=== PATIENT | male | born 1995 | race Caucasian/White ===

== ENCOUNTER 2020-02-15 01:22 | Emergency (ER) | payer SELFPAY ==
[~2020-02-15] VITALS: Ht 190.5 cm; Wt 108.9 kg
[2020-02-15 01:39] VITALS: BP 127/82
--- NOTE | 2020-02-15 02:15 | NUR ---
COVID SWAB DONE AND SENT TO LAB
--- NOTE | 2020-02-15 02:17 | NUR ---
WA SEEN AND EXAM BY DR MCCARTHY AND FOR D/C
--- NOTE | 2020-02-15 02:17 | NUR ---
Patient discharged with v/s stable. Written and verbal after care instructions given and explained. Patient verbalized understanding. Ambulatory with steady gait. All questions addressed prior to discharge. Advised to follow up with PMD.
--- NOTE | 2020-02-15 02:18 | NUR ---
PT D/C WITH [facility] GIVEN AND PT VERBALIZES UNDERSTANDING
== END 2020-02-15 02:18 | disposition home or self-care (01) ==
LOC: MED 01:22 → EEVIPCON 01:22 → MED 02:18
DX: R50.9 Fever, unspecified (principal); M79.10 Myalgia, unspecified site; R19.7 Diarrhea, unspecified; Z20.828 Contact with and (suspected) exposure to other viral communicable diseases
CPT/HCPCS: 99283; U0003

== ENCOUNTER 2020-05-31 00:30 | Emergency (ER) | payer BC, SELFPAY ==
[~2020-05-31] VITALS: Ht 188 cm; Wt 131.5 kg
[2020-05-31 00:50] VITALS: BP 148/81
[2020-05-31] MEDS ORDERED: KETOROLAC 30 MG/ML VIAL IVP ONE (01:10)
[2020-05-31] MEDS ORDERED: diphenhydrAMINE 50 MG/ML VIAL IVP ONE (01:10)
[2020-05-31] MEDS ORDERED: PROCHLORPERAZINE 10 MG/2 ML VIAL IVP ONE (01:10)
[2020-05-31 01:24] LABS: BASOPHILS # (AUTO) 0.1 K/uL (0.00-0.22); EOSINOPHILS # (AUTO) 0.2 K/uL (0-0.4); EOSINOPHILS % (AUTO) 1.7 % (0.0-4.0); HEMATOCRIT 47.6 % (36-52); HEMOGLOBIN 16.5 g/dL (12.0-18.0); LYMPHOCYTES # (AUTO) 3.7 K/uL (2.0-11.5); LYMPHOCYTES % (AUTO) 37.9 % (20.5-51.1); MEAN CORPUSCULAR HEMOGLOBIN 29 pg (27-31); MEAN CORPUSCULAR HGB CONC 35 g/dL (33-37); MONOCYTES # (AUTO) 0.6 K/uL (0.8-1.0); MONOCYTES % (AUTO) 6.1 % (1.7-9.3); NEUTROPHILS # (AUTO) 5.2 K/uL (1.8-7.7); NEUTROPHILS % (AUTO) 53.3 % (42.2-75.2); PLATELET COUNT (AUTO) 243 K/uL (140-450); RED BLOOD CELL COUNT(AUTO) 5.67 MIL/uL (4.20-6.10); RED CELL DISTRIBUTION WIDTH 13.6 % (11.6-13.7); WHITE BLOOD COUNT (AUTO) 9.8 K/uL (4.8-10.8)
[2020-05-31 01:34] LABS: ANION GAP 11.2 (8-16); CARBON DIOXIDE 28.6 mmol/L (21-32); CREATININE 1.4 mg/dL (0.6-1.3); POTASSIUM 3.8 mmol/L (3.5-5.1)
[2020-05-31] MEDS ORDERED: LORazepam 1 MG TAB ONE (01:40)
[2020-05-31] MEDS ORDERED: LORazepam 1 MG TAB PO ONE (01:40)
[2020-05-31] MEDS ORDERED: NACL 0.9% 1,000 ML IV ONE (01:45)
[2020-05-31 02:33] VITALS: BP 141/81
== END 2020-05-31 02:56 | disposition home or self-care (01) ==
LOC: MED 00:30
DX: G43.909 Migraine, unspecified, not intractable, without status migrainosus (principal); R07.89 Other chest pain; R11.2 Nausea with vomiting, unspecified
CPT/HCPCS: 36415; 70450; 80048; 84484; 85025; 93005; 96361; 96374; 96375; 99285; J0780; J1200; J1885; J7030

== ENCOUNTER 2020-07-06 17:22 | Emergency (ER) | payer BC ==
[~2020-07-06] VITALS: Ht 190.5 cm; Wt 131.5 kg
[2020-07-06 18:17] VITALS: BP 133/81
--- NOTE | 2020-07-06 18:42 | NUR ---
C/O COUGH,PARHAM, FEVER, BODY ACHE X TODAY. FATHER HAD COVID TESTED +. MED HX:DENIES
--- NOTE | 2020-07-06 19:00 | NUR ---
COVID SWAB DONE.
--- NOTE | 2020-07-06 19:17 | NUR ---
Patient discharged with v/s stable. Written and verbal after care instructions given and explained. Patient alert, oriented and verbalized understanding of instructions. Ambulatory with steady gait. All questions addressed prior to discharge. ID band removed. Patient advised to follow up with PMD. Rx of PROMETHAZINE&IBUPROFEN given. Patient educated on indication of medication including possible reaction and side effects. Opportunity to ask questions provided and answered.
[2020-07-06 19:18] VITALS: BP 133/81
== END 2020-07-06 19:18 | disposition home or self-care (01) ==
LOC: MED 17:22
DX: B34.9 Viral infection, unspecified (principal); Z20.828 Contact with and (suspected) exposure to other viral communicable diseases
CPT/HCPCS: 99283; U0003

== ENCOUNTER 2022-01-30 20:34 | Emergency (ER) | payer MEDICAID, OTHER ==
[~2022-01-30] VITALS: Ht 188 cm; Wt 120.2 kg
[2022-01-30 20:48] VITALS: BP 132/70
[2022-01-30 21:52] LABS: APPEARANCE,URINE CLEAR (CLEAR); BILIRUBIN,URINE NEGATIVE (NEGATIVE); BLOOD, URINE 3+ (NEGATIVE); LEUKOCYTE ESTERASE ,URINE NEGATIVE (NEGATIVE); NITRITE, URINE NEGATIVE (NEGATIVE); UGLUCOSE NEGATIVE (NEGATIVE)
[2022-01-30 22:08] LABS: COLOR,URINE YELLOW (YELLOW)
[2022-01-30 22:29] LABS: RBC,URINE TOO NUMEROUS TO COUN /HPF (0-5); WBC,URINE NONE SEEN /HPF (0-5)
[2022-01-31] MEDS ORDERED: HYDROmorphone PFS 2 MG/ML SYR IM ONE (00:15)
[2022-01-31] MEDS ORDERED: HYDR-5080 PO (00:16)
[2022-01-31] MEDS ORDERED: IBUP-2218 PO (00:16)
[2022-01-31 00:55] VITALS: BP 134/84
--- NOTE | 2022-01-31 00:55 | NUR ---
Patient discharged with v/s stable. Written and verbal after care instructions given and explained. Patient alert, oriented and verbalized understanding of instructions. Ambulatory with steady gait. All questions addressed prior to discharge. ID band removed. Patient advised to follow up with PMD. Rx of ibuprofen, norco given. Patient educated on indication of medication including possible reaction and side effects. Opportunity to ask questions provided and answered. Patient to recive ride out of facility.
== END 2022-01-31 00:55 | disposition home or self-care (01) ==
LOC: MED 20:34
DX: R10.12 Left upper quadrant pain (principal); F32.A Depression, unspecified; Z87.442 Personal history of urinary calculi; Z98.890 Other specified postprocedural states
CPT/HCPCS: 81001; 96372; 99283; J1170

== ENCOUNTER 2022-03-25 04:27 | Emergency (ER) | payer MEDICAID, OTHER ==
[~2022-03-25] VITALS: Ht 190.5 cm; Wt 113.4 kg
[~2022-03-25 04:27] MED LIST: HYDR-5080 PO; IBUP-2218 PO
[2022-03-25 04:30] VITALS: BP 135/79
--- NOTE | 2022-03-25 04:30 | NUR ---
TO [facility]UL[facility]
[2022-03-25] MEDS ORDERED: KETOROLAC 30 MG/ML VIAL IM ONE (05:00)
[2022-03-25] MEDS ORDERED: MORPHINE SULFATE 10 MG/ML VIAL IM ONE (05:00)
[2022-03-25 05:03] LABS: APPEARANCE,URINE CLEAR (CLEAR); BILIRUBIN,URINE NEGATIVE (NEGATIVE); BLOOD, URINE 2+ (NEGATIVE); COLOR,URINE YELLOW (YELLOW); LEUKOCYTE ESTERASE ,URINE TRACE (NEGATIVE); NITRITE, URINE NEGATIVE (NEGATIVE); UGLUCOSE NEGATIVE (NEGATIVE)
[2022-03-25 05:23] LABS: WBC,URINE 16-25 (MOD) /HPF (0-5)
[2022-03-25 05:25] LABS: CALCIUM OXALATE CRYSTALS,UR 0-10 /HPF (None Seen)
[2022-03-25] MEDS ORDERED: NAPR-54 PO (05:31)
[2022-03-25] MEDS ORDERED: CEPH-588 PO (05:31)
[2022-03-25] MEDS ORDERED: ACET-8386 PO (05:31)
[2022-03-25] MEDS ORDERED: TAMS0.4C96 PO (05:31)
[2022-03-25] MEDS ORDERED: cefTRIAXone 1,000 MG in LIDOCAINE MPF 1% 2.1 ML IM ONE (05:35)
[2022-03-25 05:36] VITALS: BP 142/74
[2022-03-25] MEDS ORDERED: LIDOCAINE MPF 1% 5 ML ONE (06:13)
[2022-03-25] MEDS ORDERED: cefTRIAXone 1,000 MG VIAL ONE (06:13)
--- NOTE | 2022-03-25 07:01 | NUR ---
Patient discharged with v/s stable. Written and verbal after care instructions given and explained. Patient alert, oriented and verbalized understanding of instructions. Ambulatory with steady gait. All questions addressed prior to discharge. ID band removed. Patient advised to follow up with PMD. Rx of KEFLEX, NAPROSYN, FLOMAX, NORCO given. Opportunity to ask questions provided and answered.
== END 2022-03-25 07:01 | disposition home or self-care (01) ==
LOC: MED 04:27
DX: N20.0 Calculus of kidney (principal); Z79.899 Other long term (current) drug therapy; Z98.890 Other specified postprocedural states
CPT/HCPCS: 81001; 87086; 96372; 99284; J0696; J1885; J2001; J2270

== ENCOUNTER 2022-05-14 22:08 | Emergency (ER) | payer OTHER ==
[~2022-05-14] VITALS: Ht 182.9 cm; Wt 122.0 kg
[~2022-05-14 22:08] MED LIST changes: +ACET-8386 PO; +CEPH-588 PO; +NAPR-54 PO; +TAMS0.4C96 PO
[2022-05-14 22:13] VITALS: BP 146/88
[2022-05-14] MEDS ORDERED: NACL 0.9% 1,000 ML IV SCH (22:20)
[2022-05-14] MEDS ORDERED: KETOROLAC 30 MG/ML VIAL IVP ONE (22:20)
--- NOTE | 2022-05-14 22:20 | NUR ---
PT TO BED 2
--- NOTE | 2022-05-14 22:21 | NUR ---
PT TAKEN TO CT
[2022-05-14 22:48] LABS: APPEARANCE,URINE SL CLOUDY (CLEAR); BILIRUBIN,URINE NEGATIVE (NEGATIVE); BLOOD, URINE 3+ (NEGATIVE); COLOR,URINE YELLOW (YELLOW); LEUKOCYTE ESTERASE ,URINE 1+ (NEGATIVE); NITRITE, URINE NEGATIVE (NEGATIVE); PH,URINE 6.5 (5.0-9.0); UGLUCOSE NEGATIVE (NEGATIVE)
[2022-05-14 22:49] LABS: BASOPHILS # (AUTO) 0.1 K/uL (0.00-0.22); BASOPHILS % (AUTO) 0.7 % (0.0-2.0); EOSINOPHILS # (AUTO) 0.1 K/uL (0-0.4); EOSINOPHILS % (AUTO) 1.1 % (0.0-4.0); HEMOGLOBIN 16.1 g/dL (12.0-18.0); LYMPHOCYTES # (AUTO) 2.6 K/uL (2.0-11.5); LYMPHOCYTES % (AUTO) 30.8 % (20.5-51.1); MEAN CORPUSCULAR HEMOGLOBIN 29 pg (27-31); MEAN CORPUSCULAR HGB CONC 35 g/dL (33-37); MEAN CORPUSCULAR VOLUME 83.6 fL (80-94); MONOCYTES # (AUTO) 0.8 K/uL (0.8-1.0); MONOCYTES % (AUTO) 8.8 % (1.7-9.3); NEUTROPHILS % (AUTO) 58.6 % (42.2-75.2); PLATELET COUNT (AUTO) 243 K/uL (140-450); RED BLOOD CELL COUNT(AUTO) 5.51 MIL/uL (4.20-6.10); RED CELL DISTRIBUTION WIDTH 14.3 % (11.6-13.7); WHITE BLOOD COUNT (AUTO) 8.5 K/uL (4.8-10.8)
--- NOTE | 2022-05-14 22:50 | NUR ---
[address] SCAN. PT TO ED STATING "I FEEL LIKE i HAVE A kIDNEY STONE." PT VERBALIZED TAKING NORCO 5/325 AND MOTRIN 600 MG AT 1930. IV INSERTED, LABS DRAWN, MEDS GIVEN PT TOLERATED WELL.
[2022-05-14 22:55] LABS: RBC,URINE TOO NUMEROUS TO COUN /HPF (0-5)
[2022-05-14 23:10] LABS: ALBUMIN 4.1 g/dL (3.4-5.0); ANION GAP 13.1 (8-16); CARBON DIOXIDE 27.5 mmol/L (21-32); CREATININE 1.1 mg/dL (0.6-1.3); POTASSIUM 3.6 mmol/L (3.5-5.1); TOTAL BILIRUBIN 0.5 mg/dL (0.0-1.0)
[2022-05-14] MEDS ORDERED: MORPHINE SULFATE 4 MG/ML SYR IVP ONE (23:20)
--- NOTE | 2022-05-15 00:30 | NUR ---
Seen by Dr Rodriguez at bedside
[2022-05-15] MEDS ORDERED: HYDROmorphone PFS 2 MG/ML SYR IVP ONE (00:35)
[2022-05-15] MEDS ORDERED: NACL 0.9% 1,000 ML IV ONE (00:35)
[2022-05-15] MEDS ORDERED: NAPR-54 PO (02:25)
--- NOTE | 2022-05-15 02:29 | NUR ---
Patient discharged with v/s stable. Written and verbal after care instructions given and explained. Patient verbalized understanding. Ambulatory with steady gait. Rx given for pain- Naproxen PO. All questions addressed prior to discharge. Advised to follow up with PMD.
[2022-05-15 02:30] VITALS: BP 130/81
== END 2022-05-15 02:28 | disposition home or self-care (01) ==
LOC: MED 22:08
DX: N13.30 Unspecified hydronephrosis (principal); Z20.822 Contact with and (suspected) exposure to COVID-19; N20.0 Calculus of kidney; N18.9 Chronic kidney disease, unspecified
CPT/HCPCS: 36415; 74176; 80053; 81001; 85025; 87086; 87426; 96361; 96374; 96375; 99284; J1170; J1885; J2270

== ENCOUNTER 2022-06-24 03:56 | Emergency (ER) | payer OTHER ==
[~2022-06-24] VITALS: Ht 190.5 cm; Wt 117.9 kg
[2022-06-24] MEDS ORDERED: KETOROLAC 30 MG/ML VIAL IM ONE (04:10)
[2022-06-24 04:20] VITALS: BP 144/83
--- NOTE | 2022-06-24 04:25 | NUR ---
TO [facility] BED AMBULATORY
[2022-06-24] MEDS ORDERED: IBUP-2213 PO (05:51)
[2022-06-24] MEDS ORDERED: TAMS0.4C96 PO (05:51)
[2022-06-24] MEDS ORDERED: HYDR-5080 PO (05:52)
[2022-06-24] MEDS ORDERED: CIPR500T4 PO (05:53)
--- NOTE | 2022-06-24 05:58 | NUR ---
Dr. Gay examining patient.
[2022-06-24] MEDS ORDERED: ONDANSETRON 4 MG ODT PO ONE (06:10)
[2022-06-24] MEDS ORDERED: MORPHINE SULFATE 10 MG/ML VIAL IM ONE (06:10)
--- NOTE | 2022-06-24 06:10 | NUR ---
MEDICATED PER [facility] ORDER, TOLERATED WELL
[2022-06-24] MEDS ORDERED: MORPHINE SULFATE 10 MG/ML VIAL ONE (06:16)
[2022-06-24] MEDS ORDERED: ONDANSETRON 4 MG ODT ONE (06:17)
[2022-06-24] MEDS ORDERED: TETRACAINE HCL/PF 0.5% OPTH 4 ML BTL ONE (06:19)
--- NOTE | 2022-06-24 06:40 | NUR ---
Patient discharged with v/s stable. Written and verbal after care instructions given and explained. Patient alert, oriented and verbalized understanding of instructions. Ambulatory with steady gait. All questions addressed prior to discharge. ID band removed. Patient advised to follow up with PMD. Rx of CIPRO,NORCO IBUPROFEN, FLOMAX given. Patient educated on indication of medication including possible reaction and side effects. Opportunity to ask questions provided and answered.
[2022-06-24 06:49] VITALS: BP 129/80
== END 2022-06-24 06:40 | disposition home or self-care (01) ==
LOC: MED 03:56
DX: N20.0 Calculus of kidney (principal); Z87.442 Personal history of urinary calculi; Z79.899 Other long term (current) drug therapy
CPT/HCPCS: 96372; 99284; J1885; J2270; Q0162

== ENCOUNTER 2022-09-01 03:30 | Emergency (ER) | payer OTHER ==
[~2022-09-01] VITALS: Ht 182.9 cm; Wt 113.4 kg
[~2022-09-01 03:30] MED LIST changes: -ACET-8386 PO; +ACET-8905 PO; +CIPR500T4 PO; +IBUP-2213 PO
[2022-09-01 03:42] VITALS: BP 123/70
--- NOTE | 2022-09-01 03:48 | NUR ---
Dr. Haskins examining patient.
[2022-09-01] MEDS ORDERED: LORA-476 PO (03:53)
[2022-09-01] MEDS ORDERED: VITD400 PO (03:53)
[2022-09-01] MEDS ORDERED: ATA25 PO (03:53)
[2022-09-01 04:08] VITALS: BP 123/70
--- NOTE | 2022-09-01 04:08 | NUR ---
Patient discharged with v/s stable. Written and verbal after care instructions given and explained. Patient alert, oriented and verbalized understanding of instructions. Ambulatory with steady gait. All questions addressed prior to discharge. ID band removed. Patient advised to follow up with PMD. Rx of atarax, ativan, vit d3 given. Patient educated on indication of medication including possible reaction and side effects. Opportunity to ask questions provided and answered.
== END 2022-09-01 04:08 | disposition home or self-care (01) ==
LOC: MED 03:30
DX: F41.9 Anxiety disorder, unspecified (principal); N20.0 Calculus of kidney; Z76.0 Encounter for issue of repeat prescription; Z98.890 Other specified postprocedural states
CPT/HCPCS: 99283

== ENCOUNTER 2022-10-14 06:17 | Emergency (ER) | payer OTHER ==
[~2022-10-14] VITALS: Ht 190.5 cm; Wt 117.9 kg
[~2022-10-14 06:17] MED LIST changes: +ATA25 PO; +LORA-476 PO; +VITD400 PO
[2022-10-14 06:22] VITALS: BP 134/82
[2022-10-14] MEDS ORDERED: MORPHINE SULFATE 4 MG/ML SYR IVP ONE (06:25)
[2022-10-14] MEDS ORDERED: ONDANSETRON 4 MG ODT PO ONE (06:25)
--- NOTE | 2022-10-14 06:28 | NUR ---
UA SENT TO LAB
--- NOTE | 2022-10-14 06:30 | NUR ---
Dr. Gay examining patient.
[2022-10-14] MEDS ORDERED: IBUP-2213 PO (06:33)
[2022-10-14] MEDS ORDERED: HYDR-5080 PO (06:33)
[2022-10-14 06:40] VITALS: BP 134/82
--- NOTE | 2022-10-14 06:40 | NUR ---
Patient discharged with v/s stable. Written and verbal after care instructions given and explained. Patient alert, oriented and verbalized understanding of instructions. Ambulatory with steady gait. All questions addressed prior to discharge. ID band removed. Patient advised to follow up with PMD. Rx of NORCO, IBUPROFEN given. Patient educated on indication of medication including possible reaction and side effects. Opportunity to ask questions provided and answered.
[2022-10-14 09:39] LABS: APPEARANCE,URINE CLEAR (CLEAR); BILIRUBIN,URINE NEGATIVE (NEGATIVE); BLOOD, URINE 2+ (NEGATIVE); COLOR,URINE YELLOW (YELLOW); LEUKOCYTE ESTERASE ,URINE NEGATIVE (NEGATIVE); NITRITE, URINE NEGATIVE (NEGATIVE); PH,URINE 6.5 (5.0-9.0); UGLUCOSE NEGATIVE (NEGATIVE)
[2022-10-14 10:04] LABS: RBC,URINE 11-20 (MOD) /HPF (0-5); WBC,URINE 0-5 /HPF (0-5)
== END 2022-10-14 06:40 | disposition home or self-care (01) ==
LOC: MED 06:17
DX: N20.0 Calculus of kidney (principal); Z76.0 Encounter for issue of repeat prescription; Z98.890 Other specified postprocedural states; Z79.899 Other long term (current) drug therapy; Z79.1 Long term (current) use of non-steroidal anti-inflammatories (NSAID); Z79.891 Long term (current) use of opiate analgesic; Z79.2 Long term (current) use of antibiotics
CPT/HCPCS: 81001; 96372; 99283; J2270; Q0162